=== PATIENT | female | born 1970 | race Caucasian/White ===

== ENCOUNTER 2017-09-12 16:32 | Emergency (ER) | payer MEDICAID ==
[~2017-09-12] VITALS: Ht 142.2 cm; Wt 102.1 kg
[2017-09-12 16:36] VITALS: Ht 142.2 cm; Wt 102.1 kg
[2017-09-12 19:11] VITALS: BP 132/74
== END 2017-09-12 19:11 | disposition home or self-care (01) ==
LOC: ED 16:32
DX: J18.8 Other pneumonia, unspecified organism (principal); J45.909 Unspecified asthma, uncomplicated; I10 Essential (primary) hypertension
CPT/HCPCS: J7613; J7644

== ENCOUNTER 2017-09-18 14:02 | Emergency (ER) | payer MEDICAID ==
[~2017-09-18] VITALS: Ht 162.6 cm; Wt 103.0 kg
[2017-09-18 14:09] VITALS: Ht 162.6 cm; Wt 103.0 kg
[2017-09-18 14:58] LABS: BASOPHIL % 0.4 % (0-2); PLATELET COUNT 344 x10^3mcL (130-400); RED CELL DISTRIBUTION WIDTH 13.7 % (11.5-14.5)
[2017-09-18 15:08] LABS: CALCIUM 8.6 mg/dL (8.5-10.1); CARBON DIOXIDE 24.3 mmol/L (21-32); CHLORIDE SERUM 108 mmol/L (98-107); CREATININE SERUM 0.9 mg/dL (0.6-1.0); GFR1 > 60 mL/min; GLUCOSE SERUM 149 mg/dL (74-106); SODIUM SERUM 141 mmol/L (136-145)
[2017-09-18 17:03] VITALS: BP 123/58
== END 2017-09-18 17:03 | disposition home or self-care (01) ==
LOC: ED 14:02
PROVIDERS: Emergency Medicine
DX: R09.1 Pleurisy (principal); R61 Generalized hyperhidrosis; E11.9 Type 2 diabetes mellitus without complications
CPT/HCPCS: J1885; Q9967

== ENCOUNTER 2017-09-28 23:33 | Emergency (ER) | payer MEDICAID ==
[2017-09-29 02:57] VITALS: BP 122/78
== END 2017-09-29 02:57 | disposition home or self-care (01) ==
LOC: ED 23:33
DX: R10.12 Left upper quadrant pain (principal); E11.9 Type 2 diabetes mellitus without complications; J45.909 Unspecified asthma, uncomplicated

== ENCOUNTER 2018-04-11 21:46 | Emergency (ER) | payer MEDICAID ==
[~2018-04-11] VITALS: Ht 144.8 cm; Wt 102.1 kg
[2018-04-11 22:11] VITALS: BP 129/89; Ht 144.8 cm; Wt 102.1 kg
== END 2018-04-12 00:48 | disposition home or self-care (01) ==
LOC: ED 21:46
DX: R04.0 Epistaxis (principal); R03.0 Elevated blood-pressure reading, without diagnosis of hypertension

== ENCOUNTER 2019-05-01 22:09 | Emergency (ER) | payer MEDICAID ==
[~2019-05-01] VITALS: Ht 147.3 cm; Wt 119.0 kg
[2019-05-01 22:19] VITALS: Ht 147.3 cm; Wt 119.0 kg
[2019-05-01 22:37] VITALS: BP 120/67
== END 2019-05-01 22:37 | disposition home or self-care (01) ==
LOC: ED 22:09
DX: J06.9 Acute upper respiratory infection, unspecified (principal)

== ENCOUNTER 2019-05-03 21:03 | Emergency (ER) | payer MEDICAID ==
[~2019-05-03] VITALS: Ht 154.9 cm; Wt 102.1 kg
[2019-05-03 21:08] VITALS: Ht 154.9 cm; Wt 102.1 kg
[2019-05-03 22:07] VITALS: BP 158/90
== END 2019-05-03 22:07 | disposition home or self-care (01) ==
LOC: ED 21:03
DX: J30.9 Allergic rhinitis, unspecified (principal); F41.9 Anxiety disorder, unspecified; R03.0 Elevated blood-pressure reading, without diagnosis of hypertension

== ENCOUNTER 2019-06-14 01:03 | Emergency (ER) | payer MEDICAID ==
[~2019-06-14] VITALS: Ht 154.9 cm; Wt 98.4 kg
[2019-06-14 01:09] VITALS: Ht 154.9 cm; Wt 98.4 kg
[2019-06-14 02:36] VITALS: BP 131/64
== END 2019-06-14 02:36 | disposition home or self-care (01) ==
LOC: ED 01:03
DX: H66.91 Otitis media, unspecified, right ear (principal); M54.6 Pain in thoracic spine; J32.9 Chronic sinusitis, unspecified; J45.909 Unspecified asthma, uncomplicated; Z90.49 Acquired absence of other specified parts of digestive tract

== ENCOUNTER 2020-04-04 20:41 | Emergency (ER) | payer MEDICAID ==
[~2020-04-04] VITALS: Ht 157.5 cm; Wt 98.4 kg
[2020-04-04 21:04] VITALS: BP 142/73; Ht 157.5 cm; Wt 98.4 kg
== END 2020-04-05 00:33 | disposition home or self-care (01) ==
LOC: ED 20:41
DX: J30.9 Allergic rhinitis, unspecified (principal); R04.0 Epistaxis; F41.9 Anxiety disorder, unspecified